=== PATIENT | female | born 1980 | race American Indian/Alaskan Native ===

== ENCOUNTER 2017-02-08 22:10 | Observation (INO) | payer OTHER, MEDICAID ==
[2017-02-08 23:45] LABS: BASO # 0.1 K/uL (0.0-0.2); BASO % 0.9 % (0.0-2.0); EOS # 0.3 K/uL (0.0-0.7); EOS % 3.5 % (0.0-4.0); HEMATOCRIT 28.5 % (34.0-47.0); LYMPH # 2.8 K/uL (1.0-4.3); LYMPH % 29.8 % (20.0-40.0); MEAN CELL VOLUME 69.5 fL (81.0-99.0); MEAN CORPUSCULAR HEMOGLOBIN 21.7 pg (27.0-31.0); MEAN CORPUSCULAR HGB CONC 31.2 g/dL (33.0-37.0); MEAN PLATELET VOLUME 7.6 fL (7.2-11.7); MONO # 0.6 K/uL (0.0-0.8); MONO % 6.1 % (0.0-10.0); NRBC % 0.1 % (0.0-2.0); PLATELET COUNT 405 K/uL (130-400); RED CELL DISTRIBUTION WIDTH 15.7 % (11.5-14.5); WHITE BLOOD COUNT 9.5 K/uL (4.8-10.8)
[2017-02-08 23:57] LABS: CHLORIDE 99 mmol/L (98-107); POTASSIUM 3.4 mmol/L (3.6-5.2); SODIUM 132 mmol/L (132-148)
[2017-02-08 23:59] LABS: ALB/GLOB RATIO 1.2 (1.0-2.1); AST/SGOT 15 U/L (14-36); BILIRUBIN,TOTAL 0.4 mg/dL (0.2-1.3); CARBON DIOXIDE 21 mmol/L (22-30); GFR AFRICAN-AMERICAN > 60; TOTAL PROTEIN 6.7 g/dL (6.3-8.3)
[2017-02-09] LABS: ALKALINE PHOSPHATASE 130 U/L (38-126); ALT/SGPT 24 U/L (9-52); BLOOD UREA NITROGEN 20 mg/dL (7-17); CALCIUM 8.3 mg/dl (8.6-10.4); GLUCOSE,RANDOM 282 mg/dL (65-105)
--- NOTE | 2017-02-09 00:16 | C.PDOC ---
History Of Present Illness Patient presents to the ER with a complaint of mid sternal chest pain radiating to the right shoulder since 15:00. Patient was given 324mg of aspirin and 3 sublingual nitroglcerin on arrival which improved patients condition. Denies SOB , nausea or vomiting. Time Seen by Provider: 02/09/17 00:15 Chief Complaint (Nursing): Chest Pain History Per: Patient History/Exam Limitations: no limitations Onset/Duration Of Symptoms: Hrs (Since 15:00) Current Symptoms Are (Timing): Still Present Severity: Mild Pain Scale Rating Of: 4 Associated Symptoms: denies: Nausea, Other (SOB, Vomiting) Alleviating Factors: None Recent travel outside of the [place]: No Past Medical History Reviewed: Historical Data, Nursing Documentation, Vital Signs Vital Signs: Last Vital Signs Temp 98.1 F 02/08/17 22:24 Pulse 66 02/08/17 23:04 Resp 14 02/08/17 22:24 BP 150/91 H 02/08/17 22:24 Pulse Ox 99 02/09/17 01:34 - Medical History PMH: Asthma, Diabetes, HTN - [facility] Procedures INCISE BARTHOLIN'S GLAND (04/21/13) TETANUS TOXOID ADMINIST (04/21/13) Family History: States: No Known Family Hx - Social History Hx Tobacco Use: No Hx Alcohol Use: No Hx Substance Use: No - Immunization History Hx Tetanus Toxoid Vaccination: No Hx Influenza Vaccination: No Hx Pneumococcal Vaccination: No Review Of Systems Cardiovascular: Positive for: Chest Pain (Mid sternal) Respiratory: Negative for: Shortness of Breath Gastrointestinal: Negative for: Nausea, Vomiting Musculoskeletal: Positive for: Shoulder Pain (Right, radiating from chest.) Physical Exam - Physical Exam Appears: Non-toxic Skin: Warm, Dry Oral Mucosa: Moist Chest: Symmetrical, No Tenderness Cardiovascular: Rhythm Regular, No Murmur Respiratory: No Rales, No Rhonchi, No Wheezing Gastrointestinal/Abdominal: Soft, No Tenderness Neurological/Psych: Oriented x3 ED Course And Treatment - Laboratory Results Result Diagrams: 02/08/17 23:42 02/08/17 23:42 ECG: Interpreted By Me, Viewed By Me ECG Rhythm: Sinus Rhythm (76), Nonspecific Changes O2 Sat by Pulse Oximetry: 99 Pulse Ox Interpretation: Normal - Radiology CXR: Interpreted by Me, Viewed By Me CXR Interpretation: No: Infiltrates, Fracture, Pnemothorax Progress Note: cardiac work up Disposition Discussed With Dr.: Bryon Vasquez Comment: accepted the pt on his service and took over the care at 1:32 AM Doctor Will See Patient In The: Hospital Counseled Patient/Family Regarding: Studies Performed, Diagnosis - Disposition Disposition: HOSPITALIZED Disposition Time: :32 Condition: FAIR - POA Present On Arrival: Poor Glycemic Control - Clinical Impression Clinical Impression: Chest pain - Scribe Statement The provider has reviewed the documentation as recorded by the Scribe Francisco Toney All medical record entries made by the Ellieibe were at my direction and personally dictated by me. I have reviewed the chart and agree that the record accurately reflects my personal performance of the history, physical exam, medical decision making, and the department course for this patient. I have also personally directed, reviewed, and agree with the discharge instructions and disposition. Decision To Admit - Pt Status Changed To: Hospital Disposition Of: Observation - . Bed Request Type: Telemetry Admitting Physician: Bryon Vasquez Patient Diagnosis: Chest pain
[2017-02-09 00:55] LABS: EOSINOPHIL 1 % (0-4); NEUTROPHIL 64 % (50-75); NUCLEATED RED BLOOD CELL 1 % (0-0); REACTIVE LYMPHOCYTES 2 % (0-0); TOTAL CELLS COUNTED 100
[2017-02-09 03:34] VITALS: O2SAT 98
[2017-02-09] MEDS ORDERED: Potassium Chloride 20 mEq ER Tab PO STA (05:10)
--- NOTE | 2017-02-09 06:54 | CP.PCM.CON ---
History of Present Illness - History of Present Illness History of Present Illness: 36 year old female who presented with chest pain atypical radiating to right shoulder. She had continuous substrnal pain with relief with nitro and asa in er. No sob dizziness abdominal pain. Found to be nemic and hypokalemic in ER Review of Systems - Review of Systems Systems not reviewed;Unavailable: Acuity of Condition - Constitutional Constitutional: absent: Headache - EENT Eyes: absent: Change in Vision Ears: absent: Ear Pain Nose/Mouth/Throat: Nasal Discharge - Cardiovascular Cardiovascular: Chest Pain, Chest Pain at Rest - Respiratory Respiratory: absent: Dyspnea on Exertion - Gastrointestinal Gastrointestinal: Abdominal Pain - Musculoskeletal Musculoskeletal: absent: Tingling - Integumentary Integumentary: absent: Swelling - Neurological Neurological: absent: Syncope - Psychiatric Psychiatric: absent: Anxiety Past Patient History - Infectious Disease Hx of Infectious Diseases: None - Past Medical History & Family History Past Medical History?: Yes - Past Social History Smoking Status: Never Smoked - CARDIAC Hx Cardiac Disorders: Yes Hx Hypertension: Yes - PULMONARY Hx Respiratory Disorders: Yes Hx Asthma: Yes - NEUROLOGICAL Hx Neurological Disorder: No - HEENT Hx HEENT Problems: No - RENAL Hx Chronic Kidney Disease: No - ENDOCRINE/METABOLIC Hx Endocrine Disorders: Yes Hx Diabetes Mellitus Type 2: Yes - HEMATOLOGICAL/ONCOLOGICAL Hx Blood Disorders: Yes Hx Anemia: Yes Hx Blood Transfusions: Yes - INTEGUMENTARY Hx Dermatological Problems: No - MUSCULOSKELETAL/RHEUMATOLOGICAL Hx Musculoskeletal Disorders: No Hx Falls: No - GASTROINTESTINAL Hx Gastrointestinal Disorders: Yes Hx Bowel Surgery: Yes - GENITOURINARY/GYNECOLOGICAL Hx Genitourinary Disorders: No - PSYCHIATRIC Hx Psychophysiologic Disorder: No Hx Substance Use: No - SURGICAL HISTORY Hx Surgeries: Yes Hx Section: Yes (times 2) Other/Comment: bowel surgery for clots post c section - ANESTHESIA Hx Anesthesia: No Hx Anesthesia Reactions: No Hx Malignant Hyperthermia: No Has any member of the family had a problem w/ anesthesia?: No Meds Allergies/Adverse Reactions: Allergies Allergy/AdvReac Type Severity Reaction Status Date / Time Benzoperoxide Allergy Uncoded 02/08/17 22:33 - Medications Medications: Current Medications Aspirin (Aspirin) 325 mg PO DAILY [facility] Clonidine HCl (Catapres) 0.1 mg PO Q8 PRN PRN Reason: bp Last Admin: 02/09/17 05:32 Dose: 0.1 mg Enoxaparin Sodium (Lovenox) 40 mg SC DAILY [facility] Glimepiride (Amaryl) 2 mg PO ACB [facility] Home Med (Labetalol) 10 mg PO BID [facility] Hydralazine HCl (Apresoline) 25 mg PO BID [facility] Ibuprofen (Motrin Tab) 800 mg PO Q8H PRN PRN Reason: Pain, moderate (4-7) Insulin Aspart (Novolog) 0 unit SC ACHS [facility] PRN Reason: Protocol Metformin HCl (Glucophage) 500 mg PO ACBD [facility] Nifedipine (Procardia Xl) 90 mg PO DAILY [facility] Pantoprazole Sodium (Protonix Ec Tab) 40 mg PO DAILY [facility] Sitagliptin Phosphate (Januvia) 100 mg PO ACB [facility] Physical Exam - Constitutional Appears: No Acute Distress - Head Exam Head Exam: ATRAUMATIC - Eye Exam Eye Exam: Normal appearance - ENT Exam ENT Exam: Mucous Membranes Moist - Respiratory Exam Respiratory Exam: Clear to Auscultation Bilateral - GI/Abdominal Exam GI & Abdominal Exam: Normal Bowel Sounds - Exam External exam: absent: Ecchymosis - Extremities Exam Extremities exam: Positive for: normal inspection - Neurological Exam Neurological exam: Alert - Psychiatric Exam Psychiatric exam: Normal Mood - Skin Skin Exam: Normal Color Results - Vital Signs Recent Vital Signs: Last Vital Signs Temp 98.3 F 02/09/17 03:00 Pulse 88 02/09/17 05:32 Resp 20 02/09/17 03:00 BP 171/98 H 02/09/17 05:32 Pulse Ox 98 02/09/17 03:00 - Labs Result Diagrams: 02/08/17 23:42 02/08/17 23:42 Labs: Laboratory Results - last 24 hr 02/09/17 06:41 POC Glucose (mg/dL) 287 H Assessment & Plan (1) Chest pain Assessment and Plan: Continue hypertension meds echo stress to eval for ischemia Trop x 3 Status: Acute (2) Hypertension Status: Acute
[2017-02-09] MEDS: (Novolog) Insulin Aspart, Recombinant 100 u/ml 10 ml vial SC SCH ×2 (08:12→12:08)
[2017-02-09 09:53] VITALS: BP 162/91; PULSE 86; RESP 26; TEMP 98.5
[2017-02-09] MEDS ORDERED: NIFEdipine 90 mg ER Tab PO SCH (10:00)
[2017-02-09] MEDS ORDERED: Pantoprazole 40 mg EC Tab PO SCH (10:00)
[2017-02-09] MEDS ORDERED: Enoxaparin 40 mg Syringe SC SCH (10:00)
[2017-02-09] MEDS ORDERED: LABETALOL PO SCH (10:00)
--- NOTE | 2017-02-09 12:39 | RAD ---
PROCEDURE: CHEST RADIOGRAPH, 1 VIEW HISTORY: chest pain COMPARISON: Comparison chest 02/19/2014 FINDINGS: LUNGS: Clear. PLEURA: No pneumothorax or pleural fluid seen. CARDIOVASCULAR: Heart appears borderline enlarged the go Normal. OSSEOUS STRUCTURES: No significant abnormalities. VISUALIZED UPPER ABDOMEN: Normal. OTHER FINDINGS: None. IMPRESSION: No active disease.
--- NOTE | 2017-02-09 13:37 | CP.PCM.HP ---
History of Present Illness - History of Present Illness History of Present Illness: 36-year-old female patient presented to the ED with complaints of midsternal chest pain radiating to the right shoulder since 15:00. Patient was given 324 mg of aspirin and 3 sublingual nitroglycerin on arrival which improved patient' s condition. Patient denies SOB, nausea or vomiting. Present on Admission - Present on Admission Any Indicators Present on Admission: No Past Patient History - Infectious Disease Hx of Infectious Diseases: None - Past Medical History & Family History Past Medical History?: Yes - Past Social History Smoking Status: Never Smoked - CARDIAC Hx Cardiac Disorders: Yes Hx Hypertension: Yes - PULMONARY Hx Respiratory Disorders: Yes Hx Asthma: Yes - NEUROLOGICAL Hx Neurological Disorder: No - HEENT Hx HEENT Problems: No - RENAL Hx Chronic Kidney Disease: No - ENDOCRINE/METABOLIC Hx Endocrine Disorders: Yes Hx Diabetes Mellitus Type 2: Yes - HEMATOLOGICAL/ONCOLOGICAL Hx Blood Disorders: Yes Hx Anemia: Yes Hx Blood Transfusions: Yes - INTEGUMENTARY Hx Dermatological Problems: No - MUSCULOSKELETAL/RHEUMATOLOGICAL Hx Musculoskeletal Disorders: No Hx Falls: No - GASTROINTESTINAL Hx Gastrointestinal Disorders: Yes Hx Bowel Surgery: Yes - GENITOURINARY/GYNECOLOGICAL Hx Genitourinary Disorders: No - PSYCHIATRIC Hx Psychophysiologic Disorder: No Hx Substance Use: No - SURGICAL HISTORY Hx Surgeries: Yes Hx Section: Yes (times 2) Other/Comment: bowel surgery for clots post c section - ANESTHESIA Hx Anesthesia: No Hx Anesthesia Reactions: No Hx Malignant Hyperthermia: No Has any member of the family had a problem w/ anesthesia?: No Meds Allergies/Adverse Reactions: Allergies Allergy/AdvReac Type Severity Reaction Status Date / Time Benzoperoxide Allergy Uncoded 02/08/17 22:33 Physical Exam - Constitutional Appears: Well - Head Exam Head Exam: ATRAUMATIC, NORMAL INSPECTION, NORMOCEPHALIC - Eye Exam Eye Exam: EOMI, Normal appearance, PERRL Pupil Exam: NORMAL ACCOMODATION, PERRL - ENT Exam ENT Exam: Mucous Membranes Moist, Normal Exam - Neck Exam Neck exam: Positive for: Normal Inspection - Respiratory Exam Respiratory Exam: Decreased Breath Sounds - Cardiovascular Exam Cardiovascular Exam: REGULAR RHYTHM, +S1, +S2 - GI/Abdominal Exam GI & Abdominal Exam: Diminished Bowel Sounds, Soft - Rectal Exam Rectal Exam: Deferred Results - Vital Signs Recent Vital Signs: Last Vital Signs Temp 98.5 F 02/09/17 09:53 Pulse 86 02/09/17 09:53 Resp 26 H 02/09/17 09:53 BP 162/91 H 02/09/17 09:53 Pulse Ox 98 02/09/17 09:53 - Labs Result Diagrams: 02/08/17 23:42 02/08/17 23:42 Labs: Laboratory Results - last 24 hr 02/09/17 02/09/17 02/09/17 06:41 07:11 11:40 POC Glucose (mg/dL) 287 H 213 H Total Creatine Kinase 69 CK-MB (Mass) 0.57 Troponin I, Quant 0.0340 Assessment & Plan (1) Chest pain Status: Acute (2) Conjunctivitis Status: Acute (3) Plantar fasciitis Status: Acute (4) Hypertension Status: Acute - Assessment and Plan (Free Text) Plan: onitor bp romix2 cardio asp protnix/lovenox aspand other med as ordered
--- NOTE | 2017-02-09 17:13 | CP.PCM.PN ---
Subjective - Date & Time of Evaluation Date of Evaluation: 02/09/17 Time of Evaluation: 17:13 - Subjective Subjective: Alert, orientedx3, NAD. Objective - Vital Signs/Intake and Output Vital Signs (last 24 hours): Temp Pulse Resp BP Pulse Ox 98.5 F 86 26 H 162/91 H 98 02/09/17 09:53 02/09/17 09:53 02/09/17 09:53 02/09/17 09:53 02/09/17 09:53 Intake and Output: 02/09/17 02/09/17 06:59 18:59 Intake Total 110 Balance 110 - Medications Medications: Current Medications Amlodipine Besylate (Norvasc) 5 mg PO DAILY [facility] Aspirin (Aspirin) 325 mg PO DAILY [facility] Last Admin: 02/09/17 10:14 Dose: 325 mg Clonidine HCl (Catapres) 0.1 mg PO Q8 PRN PRN Reason: bp Last Admin: 02/09/17 05:32 Dose: 0.1 mg Enoxaparin Sodium (Lovenox) 40 mg SC DAILY [facility] Last Admin: 02/09/17 10:14 Dose: Not Given Glimepiride (Amaryl) 2 mg PO ACB [facility] Last Admin: 02/09/17 08:12 Dose: 2 mg Home Med (Labetalol) 10 mg PO BID [facility] Hydralazine HCl (Apresoline) 25 mg PO Q8H [facility] Ibuprofen (Motrin Tab) 800 mg PO Q8H PRN PRN Reason: Pain, moderate (4-7) Insulin Aspart (Novolog) 0 unit SC ACHS [facility] PRN Reason: Protocol Last Admin: 02/09/17 12:08 Dose: 2 unit Metformin HCl (Glucophage) 500 mg PO ACBD [facility] Last Admin: 02/09/17 08:12 Dose: 500 mg Nifedipine (Procardia Xl) 90 mg PO DAILY [facility] Last Admin: 02/09/17 10:14 Dose: 90 mg Pantoprazole Sodium (Protonix Ec Tab) 40 mg PO DAILY [facility] Last Admin: 02/09/17 10:14 Dose: 40 mg Sitagliptin Phosphate (Januvia) 100 mg PO ACB [facility] Last Admin: 02/09/17 08:12 Dose: 100 mg Assessment and Plan - Assessment and Plan (Free Text) Assessment: Patient seen and examined. NONI negative, no chest pains. BP not well controlled. Not cleared by cardiologists, Patient want to go home, signed AMA. Advised to f/u with her PMD and continue her home medications.
--- NOTE | 2017-02-09 18:02 | CARD ---
APPROVED REPORT EXAM: Two-dimensional and M-mode echocardiogram with Doppler and color Doppler. Other Information Quality : GoodRhythm : NSR INDICATION Chest Pain M-Mode DIMENSIONS RVDd1.46 (2.1-3.2cm)Left Atrium (MM)4.48 (2.5-4.0cm) IVSd1.27 (0.7-1.1cm)Aortic Root2.78 (2.2-3.7cm) LVDd5.17 (4.0-5.6cm)Aortic Cusp Exc.1.63 (1.5-2.0cm) PWd1.17 (0.7-1.1cm)FS (%) 39 % LVDs3.16 (2.0-3.8cm)LVEF (%)69 (>50%) Mitral Valve MV E Eejmdvvz21.1cm/sMV A Ksdkjena15.7cm/sE/A ratio0.7 TDI E/Lateral E'0.0E/Medial E'0.0 Tricuspid Valve TR Peak Xzraauor820xm/sTR Peak Gr.28wjMwGCQM19foIa LEFT VENTRICLE The left ventricle is normal size. There is mild concentric left ventricular hypertrophy. Left ventricle systolic function is normal. The Ejection Fraction is 65-70%. There is normal LV segmental wall motion. Transmitral Doppler flow pattern is Grade I-abnormal relaxation pattern. There is no ventricular septal defect visualized. RIGHT VENTRICLE The right ventricle is normal size. The right ventricular systolic function is normal. ATRIA The left atrium is mildly dilated. The right atrium size is normal. AORTIC VALVE The aortic valve is tri-cuspid. The aortic valve is normal in structure. No aortic regurgitation is present. There is no aortic valvular stenosis. MITRAL VALVE The mitral valve is normal in structure. There is no evidence of mitral valve prolapse. There is no mitral valve regurgitation noted. TRICUSPID VALVE The tricuspid valve is normal in structure. There is trace tricuspid regurgitation. Right ventricular systolic pressure is estimated at less than 30 mmHg. There is no pulmonary hypertension. PULMONIC VALVE The pulmonic valve is not well visualized. There is trace pulmonic valvular regurgitation. GREAT VESSELS The IVC is normal in size and collapses >50% with inspiration. PERICARDIAL EFFUSION There is no pericardial effusion. <Conclusion> There is mild concentric left ventricular hypertrophy. Left ventricle systolic function is normal. The Ejection Fraction is 65-70%. Transmitral Doppler flow pattern is Grade I-abnormal relaxation pattern.
--- NOTE | 2017-02-11 13:05 | CARD ---
APPROVED REPORT EKG Measurement Heart [id number] <Conclusion> Normal sinus rhythm with sinus arrhythmia Minimal voltage criteria for LVH, may be normal variant Borderline ECG
== END 2017-02-09 17:15 | disposition left against medical advice (07) ==
LOC: C.ER 22:10 → C.9E 02-09 01:33 → C.6T 02-09 01:53
PROVIDERS: ADMIT Internal Medicine Nephrology; ATTEND Internal Medicine Nephrology
DX: R07.9 Chest pain, unspecified (principal)
CPT/HCPCS: 71010; 80053; 82009; 82948; 83690; 84484; 85025; 93005; 93306; 99285; G0378

== ENCOUNTER 2017-03-22 11:09 | Emergency (ER) | payer OTHER, MEDICAID ==
[2017-03-22 11:17] VITALS: BMI 37.0
[2017-03-22 11:18] VITALS: BP 146/99; PULSE 102; RESP 18; TEMP 98.1; O2SAT 100
--- NOTE | 2017-03-22 11:43 | C.PDOC ---
History Of Present Illness 36 y/o female presents to the ED with complaints of left shoulder and neck pain x3 days. Pt states she "may have slept funny on the futon." Denies direct trauma , weakness, numbness or any other complaints. Time Seen by Provider: 03/22/17 11:27 Chief Complaint (Nursing): Upper Extremity Problem/Injury History Per: Patient History/Exam Limitations: no limitations Onset/Duration Of Symptoms: Days Current Symptoms Are (Timing): Still Present Quality: "Pain" Severity: Mild Recent travel outside of the [place]: No Past Medical History Reviewed: Historical Data, Nursing Documentation, Vital Signs Vital Signs: Last Vital Signs Temp 98.1 F 03/22/17 11:17 Pulse 102 H 03/22/17 11:17 Resp 18 03/22/17 11:17 BP 146/99 H 03/22/17 11:17 Pulse Ox 100 03/22/17 12:03 - Medical History PMH: Anemia, Asthma, Diabetes, HTN - [facility] Procedures INCISE BARTHOLIN'S GLAND (04/21/13) TETANUS TOXOID ADMINIST (04/21/13) Family History: States: Unknown Family Hx - Social History Hx Tobacco Use: No Hx Alcohol Use: No Hx Substance Use: No - Immunization History Hx Tetanus Toxoid Vaccination: No Hx Influenza Vaccination: No Hx Pneumococcal Vaccination: No Review Of Systems Musculoskeletal: Positive for: Other (left shoulder and neck pain) Neurological: Negative for: Weakness, Numbness Physical Exam - Physical Exam Appears: Non-toxic, No Acute Distress Skin: Warm, Dry, No Rash Head: Atraumatic, Normacephalic Neck: Normal ROM, Paracervical Tenderness (left sided), Supple Cardiovascular: Rhythm Regular, No Murmur Respiratory: Normal Breath Sounds, No Rales, No Rhonchi, No Wheezing Extremity: Normal ROM (left shoulder), No Tenderness, No Deformity, No Swelling Pulses: Left Radial: Normal Neurological/Psych: Oriented x3, Normal Speech, Normal Motor, Normal Sensation ED Course And Treatment O2 Sat by Pulse Oximetry: 100 (room air) Pulse Ox Interpretation: Normal Medical Decision Making Medical Decision Making: suspect torticollis/muscle spasm. pt in nad, texting on phone. imaging neg as read by me, advise outpt f/u and return precautions Disposition - Disposition Referrals: [facility] [Outside] [facility] [Outside] Disposition: HOME/ ROUTINE Disposition Time: 12:00 Condition: GOOD Additional Instructions: pplease follow up with your doctor. return to er with worsening symptoms or concerns. Prescriptions: Cyclobenzaprine [Cyclobenzaprine HCl] 10 mg PO TID PRN #21 tab PRN Reason: Muscle Spasm Naproxen [Naprosyn] 500 mg PO BID PRN #14 tablet PRN Reason: Pain, Mild (1-3) Instructions: Shoulder Sprain (ED), Muscle Spasm (ED) - Clinical Impression Clinical Impression: Muscle spasm, Torticollis - Scribe Statement The provider has reviewed the documentation as recorded by the Keven Joyner Provider Attestation: All medical record entries made by the Keven were at my direction and personally dictated by me. I have reviewed the chart and agree that the record accurately reflects my personal performance of the history, physical exam, medical decision making, and the department course for this patient. I have also personally directed, reviewed, and agree with the discharge instructions and disposition.
--- NOTE | 2017-03-22 13:09 | RAD ---
PROCEDURE: Radiographs of the Left Shoulder HISTORY: pain COMPARISON: No prior. FINDINGS: BONES: Normal. No fracture. JOINTS: Normal. Glenohumeral and acromioclavicular joints preserved. No osteoarthritis. SOFT TISSUES: Normal. OTHER FINDINGS: None. IMPRESSION: Normal radiographs of the left shoulder.
== END 2017-03-22 12:08 | disposition home or self-care (01) ==
LOC: C.ER 11:09
DX: M62.838 Other muscle spasm (principal); M43.6 Torticollis
CPT/HCPCS: 73030; 96372; 99283; J1885